=== PATIENT | male | born 1985 | race Caucasian/White ===

== ENCOUNTER 2017-05-23 22:12 | Emergency (ER) | payer OTHER ==
[~2017-05-23] VITALS: Ht 185.4 cm; Wt 84.0 kg
[~2017-05-23 22:12] MED LIST: METH750T2 PO; MOBI15TA PO
[2017-05-23 22:14] VITALS: BP 166/89; PULSE 131; RESP 20; TEMP 97.9; O2SAT 97
[2017-05-23] MEDS ORDERED: MORPHINE SULFATE 8 MG/ML INJ IM ONE (22:30)
[2017-05-23] MEDS ORDERED: ONDANSETRON ODT 4 MG TAB PO ONE (22:30)
[2017-05-23] MEDS ORDERED: TETANUS/DIPHTHERIA TOXOID ADULT 0.5 ML VIAL IM ONE (22:30)
--- NOTE | 2017-05-23 22:57 | PD ---
HPI Chief Complaint: Injury Time Seen by Provider: 22:50 Travel History International Travel<30 days: No Contact w/Intl Traveler<30days: No Traveled to known affect area: No History of Present Illness HPI 32-year-old [id number] white male presents to emergency department for evaluation of left hand pain. The patient states that he accidentally crushed his hand between the ball of the truck and the tongue of a boat trailer. He is complaining of pain in his left middle finger and ring finger. The patient states the pain is severe. He has some tingling in his finger but no numbness. He denies any other injuries. He has not had a tetanus shot over 5 years. PFSH Past Medical History Medical History: Denies Significant Hx Diminished Hearing: No Tetanus Vaccination: > 5 Years Past Surgical History Surgical History: No Previous Surgery Social History Alcohol Use: Yes Tobacco Use: No Substance Use: No Allergies-Medications (Allergen,Severity, Reaction): Coded Allergies: No Known Allergies (Unverified , 05/23/17) Reported Meds & Prescriptions Reported Meds & Active Scripts Active Percocet (Oxycodone-Acetaminophen) 5-325 mg Tab 1-2 Tab PO Q6H PRN Cephalexin 500 Mg Cap 500 Mg PO Q6H Review of Systems Except as stated in HPI: all other systems reviewed are Neg (is swollen and Advil a lot of wrist middle and ring finger Ring normally averages) General / Constitutional: No: Fever, Chills Eyes: No: Blurred Vision, Photophobia HENT: No: Sore Throat, Neck Stiffness Cardiovascular: No: Chest Pain or Discomfort, Palpitations Respiratory: No: Cough, Shortness of Breath Gastrointestinal: Positive: Nausea, Vomiting Genitourinary: No: Dysuria, Hematuria Musculoskeletal: Positive: Edema ( his skin), Pain ( go ahead and hold off) Skin: No Rash, No Itching Neurologic: Positive: Paresthesia Physical Exam Narrative GENERAL: This is a well-nourished, well-developed patient, in no apparent distress. SKIN: No rashes, ecchymoses or lesions. Warm and dry. HEAD: Atraumatic. Normocephalic. EYES: PERRL, EOMI, no discharge or injection. No scleral icterus. EARS: Clear NOSE: Nasal turbinates appear normal. THROAT: Mucosa pink and moist. Airway patent. NECK: Trachea midline. supple, moves head freely. LUNGS: Clear to auscultation. CV: Regular in rhythm. ABDOMEN: Soft nontender. EXT: No clubbing cyanosis. Examination of the left hand reveals a crush injury to the hand involving the ring finger and middle finger. Patient has what appears to be a laceration to the volar surface of the ring. He has intact sensation distally. He has significant decreased range of motion due to pain and swelling. On closer inspection after removal the ring the patient has a superficial avulsion laceration to the volar proximal MCP joint region of the ring finger. This is not communicating. There is no tendon or nerve injury. No joint injury. The middle finger has a 1.5 cm laceration centrally just above the crease of the MCP joint of the proximal volar pad. This laceration goes in the subcutaneous tissues. There is no nerve or tendon injury. Data Data Last Documented VS Vital Signs Date Time Temp Pulse Resp B/P Pulse Ox O2 Delivery O2 Flow Rate FiO2 05/23/17 22:14 97.9 131 20 166/89 97 Room Air Orders Tetanus/Diphtheria Tox Adult (Tetanus/Di (05/23/17 22:30) Ondansetron Odt (Zofran Odt) (05/23/17 22:30) Morphine Inj (Morphine Inj) (05/23/17 22:30) Hand, Complete (Lak7wal) (05/23/17 22:47) Ice/Cold Pack (05/23/17 22:47) Iv Access Insert/Monitor (05/23/17 23:20) Cefazolin 2 Gm Premix (Ancef 2 Gm Premix (05/23/17 23:30) Ondansetron Inj (Zofran Inj) (05/24/17 00:00) Morphine Inj (Morphine Inj) (05/24/17 00:15) Splint Or Brace Apply/Monitor (05/24/17 00:14) Bupivacaine Pf 0.5% Inj (Marcaine Pf 0.5 (05/24/17 00:30) Diphenhydramine Inj (Benadryl Inj) (05/24/17 00:45) Metoclopramide Inj (Reglan Inj) (05/24/17 00:45) MDM Medical Decision Making Medical Screen Exam Complete: Yes Emergency Medical Condition: Yes Medical Record Reviewed: Yes Interpretation(s) Last 24 hours Impressions Hand X-Ray 05/23/17 4727 Signed Impressions: Service Date/Time: Tuesday, May 23, 2017 23:14 - CONCLUSION: Nondisplaced fracture base of the proximal phalanx fourth finger. Soft tissue swelling and minimal debris. Lucas Andrew MD Differential Diagnosis MDM: High Differential diagnoses: Fracture, sprain, strain, dislocation, contusion, neurovascular injury Narrative Course Patient's given Zofran 4 mg by mouth, 8 mg of morphine IM. The patient is offered a block to the hand which she has declined. Patient's ring is removed using the ring cutter. Procedures Procedure Narrative LACERATION LOCATION: Left volar finger LENGTH: 1.5 cm NUMBER OF STITCHES/FRANKY: 3 REPAIR: The area of the laceration was prepped with Betadine and sterilely draped. The laceration was infiltrated with 1% lidocaine and 0.5% Marcaine. The wound was copiously irrigated and explored without evidence of foreign body , tendon injury or neurovascular injury. The wound was closed using 5-0 proline. This was a simple single layer repair. A sterile dressing was applied. The patient was advised to keep the dressing clean and dry. Patient is placed in a volar splint in flexion. Patient tolerated the procedure well. Diagnosis Primary Impression: Crushing injury of left hand Qualified Code: S67.22XA - Crushing injury of left hand, initial encounter Additional Impressions: Fracture of phalanx of left ring finger Qualified Code: S62.645A - Closed nondisplaced fracture of proximal phalanx of left ring finger, initial encounter Laceration of left middle finger Qualified Code: S61.213A - Laceration of left middle finger without foreign body without damage to nail, initial encounter Referrals: Lisandro Shaffer III, MD 3 days Patient Instructions: Narcotic given in the ED Departure Forms: Tests/Procedures, Work Release Special Instructions: No work until released by orthopedic hand surgeon. Additional Instructions: Rest. Elevate your hand above your heart at all times. Ice packs for the next 2 days. 20 minutes on 20 off. Keep your splint clean and dry. Keflex and Percocet. Call Dr. Shaffer Friday for an appointment. Return to the ER for problems. Med/Other Pt SpecificInfo: Prescription(s) given, Wound Care Scripts Oxycodone-Acetaminophen (Percocet)5-325 mg Tab1-2 Tab PO Q6H PRN (PAIN) #30 TAB Ref 0 Prov:Yadiel Munoz MD 05/24/17 Cephalexin 500 Mg [id number] Mg PO Q6H #40 CAP Prov:Yadiel Munoz MD 05/24/17 Disposition: 01 DISCHARGE HOME Condition: Stable Rodney Hardin May 23, 2017 22:57
[2017-05-23] MEDS ORDERED: ceFAZolin 2 GM PREMIX 50 ML IV ONE (23:30)
[2017-05-24] MEDS ORDERED: ONDANSETRON HCL 4 MG/2 ML VIAL IV PUSH ONE
[2017-05-24] MEDS ORDERED: CEPH500C PO (00:14)
[2017-05-24] MEDS ORDERED: PERC5TAB12 PO (00:14)
[2017-05-24] MEDS ORDERED: MORPHINE SULFATE 8 MG/ML INJ IV PUSH ONE (00:15)
--- NOTE | 2017-05-24 00:15 | RADRPT ---
EXAM DATE/TIME: 05/23/2017 23:14 [facility] COMPARISON: No previous studies available for comparison. INDICATIONS : Hand pain. MEDICAL HISTORY : None. SURGICAL HISTORY : None. ENCOUNTER: Initial ACUITY: 1 day PAIN SCORE: 6/10 LOCATION: Left upper extremity Hand FINDINGS: Three view examination of the left hand demonstrates nondisplaced fracture base of the proximal phala nx fourth finger. There is some debris in the adjacent soft tissues. Extensive soft tissue swelling. Bony mineralization is normal. CONCLUSION: Nondisplaced fracture base of the proximal phalanx fourth finger. Soft tissue swelling and minimal de bris. Lucas Andrew MD on May 24, 2017 at 0:13 Board Certified Radiologist. This report was verified electronically.
[2017-05-24] MEDS ORDERED: BUPIVACAINE HCL PF 0.5% 30 ML VIAL INFIL ONE (00:30)
[2017-05-24] MEDS ORDERED: METOCLOPRAMIDE HCL 10 MG/2 ML VIAL IV PUSH ONE (00:45)
[2017-05-24] MEDS ORDERED: diphenhydrAMINE HCL 50 MG/ML VIAL IV PUSH ONE (00:45)
== END 2017-05-24 01:38 | disposition home or self-care (01) ==
LOC: NEPD 22:12
DX: S67.22XA Crushing injury of left hand, initial encounter (principal); S62.645A Nondisplaced fracture of proximal phalanx of left ring finger, initial encounter for closed fracture; S61.213A Laceration without foreign body of left middle finger without damage to nail, initial encounter; W23.0XXA Caught, crushed, jammed, or pinched between moving objects, initial encounter; Z23 Encounter for immunization
CPT/HCPCS: 12001; 29125; 73130; 90471; 90714; 96372; 96374; 96375; 99284; J0690; J1200; J2270; J2405; J2765